=== PATIENT | female | born 1990 | race Caucasian/White ===

== ENCOUNTER 2020-12-21 10:42 | Inpatient (IN) | payer BC, OTHER ==
[~2020-12-21] VITALS: Ht 157.5 cm; Wt 117.9 kg
[2020-12-22 04:21] LABS: HEMOGLOBIN 12.1 gm/dl (12.3-15.3); RED BLOOD COUNT 4.12 M/UL (4.00-5.10); WHITE BLOOD COUNT 7.9 K/UL (4.5-11.0)
[2020-12-23 01:26] LABS: HEMOGLOBIN 12.1 gm/dl (12.3-15.3); RED BLOOD COUNT 4.09 M/UL (4.00-5.10); WHITE BLOOD COUNT 7.9 K/UL (4.5-11.0)
[2020-12-24 06:02] LABS: HEMOGLOBIN 12.3 gm/dl (12.3-15.3); RED BLOOD COUNT 4.07 M/UL (4.00-5.10); WHITE BLOOD COUNT 7.2 K/UL (4.5-11.0)
[2020-12-25 03:20] LABS: RED BLOOD COUNT 3.9 M/UL (4.00-5.10); WHITE BLOOD COUNT 7.3 K/UL (4.5-11.0)
[2020-12-25 11:14] LABS: ANTISTREPTOLYSIN O AB 128.3 IU/mL (0.0-200.0); COMPLEMENT C3, SERUM 195 mg/dL (82-167); COMPLEMENT C4, SERUM 31 mg/dL (12-38)
[2020-12-25 13:14] LABS: ANTI-DSDNA ANTIBODIES 1 IU/mL (0-9)
[2020-12-25 17:11] LABS: ATYPICAL PANCA <1:20 titer (Neg:<1:20); CYTOPLASMIC (C-ANCA) <1:20 titer (Neg:<1:20); PERINUCLEAR (P-ANCA) <1:20 titer (Neg:<1:20)
== END 2020-12-25 18:26 | disposition home or self-care (01) | DRG 683 ==
LOC: MED SURG 4 12:19
PROVIDERS: Internal Medicine; Internal Medicine Nephrology; Physician Assistant; ADMIT Hospitalist
DX: N17.0 Acute kidney failure with tubular necrosis (principal); K92.1 Melena; E27.5 Adrenomedullary hyperfunction; Z20.822 Contact with and (suspected) exposure to COVID-19; Z68.42 Body mass index [BMI] 45.0-49.9, adult; N30.00 Acute cystitis without hematuria; K76.0 Fatty (change of) liver, not elsewhere classified; E87.6 Hypokalemia; D69.6 Thrombocytopenia, unspecified; D64.9 Anemia, unspecified; E66.01 Morbid (severe) obesity due to excess calories; Z90.49 Acquired absence of other specified parts of digestive tract; Z83.3 Family history of diabetes mellitus; Z82.49 Family history of ischemic heart disease and other diseases of the circulatory system
CPT/HCPCS: 36415; 80048; 80053; 80076; 81001; 82272; 82436; 82550; 82553; 82570; 83010; 83615; 83735; 83874; 83883; 84132; 84133; 84156; 84300; 85025; 85027; 86038; 86060; 86140; 86160; 86225; 86256; 87086; 96374; 96375; 96376; G0378; G0379; J0696; J2405; J7030

== ENCOUNTER → 2021-01-07 | Outpatient (CLI) | payer BC, OTHER ==
[2021-01-07 09:55] LABS: BUN/CREATININE RATIO 12 (0-10)
== END ==
LOC: LAB 09:05
PROVIDERS: Nurse Practitioner Family
DX: N17.9 Acute kidney failure, unspecified (principal)
CPT/HCPCS: 36415; 80048